=== PATIENT | female | born 1980 | race Caucasian/White ===

== ENCOUNTER 2020-12-15 18:50 | Emergency (ER) | payer MEDICAID, SELFPAY ==
[2020-12-15 18:51] VITALS: BP 152/76; PULSE 99; RESP 15; TEMP 36.1; O2SAT 62; BMI 43.7
--- NOTE | 2020-12-15 19:05 | ED.DCSUM_ITS ---
History of Present Illness Chief Complaint: Cold Sx Informant: Patient Onset: Days - Onset December 09 Context: Sudden Onset Timing: Continuous Quality: Upper respiratory symptoms with altered taste and smell Location: Upper respiratory Current Severity: Mild Maximum Severity: Moderate Worsened by: Nothing Relieved by: Nothing Associated Symptoms: Subjective fever with chills, headache and myalgias Narrative: Patient 40-year-old woman who presents because of upper respiratory symptoms that started 6 days ago. Her employer sent to be tested for Covid. She does report headache, subjective fever, chills. She does report rhinorrhea, congestion postnasal drainage with sore throat. She does report altered taste and smell. She does have a cough, which is nonproductive. She denies chest pain. She denies nausea, vomiting or diarrhea. She denies urologic symptoms or decreased urine output. She denies rash. Denies discoloration of her fingers or toes. She has no other complaints. Prior similar symptoms: No Recent Illness/Hospitalization: No - Past Medical History (1) No significant past medical history Status: Acute Past Medical History - Allergies and Home Meds Allergies/Adverse Reactions: Allergies No Known Allergies Allergy (Verified 12/15/20 18:53) Primary Care Physician: NOT,DEFINED [NON-STAFF] - Prior records reviewed: No Past Medical History: None Surgical History: noncontributory Lives: Alone Smoking Status: Never smoker Alcohol: None Drugs: None Review of Systems General: Reports: Chills, Fever, Malaise, Subjective. Denies: Sweats, Weight loss Eyes: Denies: Visual changes - bilaterally, Blurred Vision - bilaterally ENT: Reports: Rhinorrhea, Sore throat. Denies: Bilateral ear pain Cardiovascular: Denies: Chest pain, Palpitations Respiratory: Reports: Dyspnea, Cough. Denies: Sputum, Dyspnea on exertion, Orthopnea, Paroxysmal nocturnal dyspnea Gastrointestinal: Denies: Abdominal pain, Nausea, Vomiting, Diarrhea, Melena, Hematochezia Genitourinary: Denies: Dysuria, Hematuria, Frequency Musculoskeletal: Reports: Myalgias. Denies: Arthralgias, Neck pain, Back pain, Swelling, Extremity Pain Skin: Denies: Rash, Wounds Neurological: Reports: Headache. Denies: Weakness, Parasthesia Psych: Denies: Depression, Anxiety Hematologic: Denies: Easy bruising, Easy bleeding Physical Exam Vital Signs/Narrative: Vital Signs Temp Pulse Resp BP Pulse Ox 12/15/20 18:51 96.9 F L 99 15 152/76 H 62 Inital Vital Signs reviewed: Yes General: Well nourished, Well developed, Obese, No Acute Distress - Patient appears uncomfortable. Head: Normocephalic, Atraumatic Eyes: Perrl, EOMI. Negative for: Pale conjunctiva, Scleral icterus ENT: Moist mucous membranes, TM's clear, Nasal congestion. Negative for: No rhinorrhea Neck: Supple, Nontender, No lymphadenopathy, No JVD Cardiovascular: Regular rate, Regular rhythm, No murmurs, Normal S1, Normal S2 Respiratory: No distress, CTA bilaterally, Chest nontender Abdomen: Soft, Nontender, Nondistended, Normal bowel sounds Rectal: Deferred Back: Nontender, Normal Inspection Extremities: Nontender, No edema. Negative for: Calf Tenderness Skin: Normal color, No rash, No Trauma. Negative for: Cyanosis, Diaphoresis, Jaundice Neurological: Alert, Oriented x3, Cranial nerves II-XII grossly intact, Normal Strength, Normal Sensation, Normal Gait Psychological: Normal affect Diagnostic/Tx/Re-eval Chest X-Ray - ED: 1 View, Read by ED Physician, Normal, Heart, Lungs, Mediastinum, Bony Structures, No Acute Disease, - - X-ray read by me at 1942. - Medical Decision Making Patient reports dyspnea and has cough chest x-ray was obtained to evaluate for i nfiltrate. Covid test was obtained. X-ray is unremarkable. Covid test results will not be available for 2 to 3 days. ED Disposition - Plan for ED Patient: Disposition: Home or Assisted Living Diagnosis: COVID-19 determined by clinical diagnostic criteria, Upper respiratory infection with cough and congestion Instructions: Coronavirus Disease 2019 (COVID-19): Overview, Pending Outpatient COVID Test Referrals: NOT,DEFINED [NON-STAFF] - Quan Anderson MD [STAFF PHYSICIAN] - As Needed Additional Instructions: Since she do not have a primary care physician listed you were referred to Dr. Ted Mendoza.
--- NOTE | 2020-12-15 19:30 | RAD_ITS ---
STUDY: X-RAY CHEST REASON FOR EXAM: Female, 40 years old. COLD SX FOR LAST 6 DAYS, COUGH, CONGESTION, CHEST TIGHTNESS. TECHNIQUE: Single AP portable view of the chest. COMPARISON: None. FINDINGS: The lungs are clear and expanded. There is no demonstrated pleural abnormality. Normal size heart. Normal mediastinum and beena. Normal visualized pulmonary arteries. Normal visualized aortic arch and descending thoracic aorta. Normal visualized thoracic spine. Normal visualized ribs, clavicles, and shoulders. There is no demonstrated abnormality of the visualized soft tissue structures of the upper abdomen. RAD/Chest 1 View (Portable) IMPRESSION: Normal x-ray examination of the chest. Electronically Signed: Chip Moreno MD at 19:49 EST , Service support ,
== END 2020-12-15 20:15 | disposition home or self-care (01) ==
PROVIDERS: Emergency Provider Emergency Medicine
DX: U07.1 COVID-19 (principal); J06.9 Acute upper respiratory infection, unspecified; Z20.822 Contact with and (suspected) exposure to COVID-19; E66.9 Obesity, unspecified
CPT/HCPCS: 71045; 87635; 99282; U0005; U0003